=== PATIENT | female | born 1935 | race Caucasian/White ===

== ENCOUNTER → 2016-12-18 | Day surgery (SDC) | payer MEDICARE, OTHER ==
[~2016-12-18] MED LIST: Glycopyrrolate 0.2 MG/ML SDV IVPUSH ONE; Lactated Ringers 1,000 ML IV SCH; Propofol 200 MG/20 ML SDV IV ONE
[2016-12-18 11:36] VITALS: BP 132/80
--- NOTE | 2016-12-18 15:28 | OR ---
DATE OF OPERATION: 12/18/2016 PREOPERATIVE DIAGNOSIS: DYSPHAGIA. POSTOPERATIVE DIAGNOSIS: DYSPHAGIA SECONDARY TO HIATAL HERNIA WITH ESOPHAGITIS STRICTURE AND SEVERE GASTRITIS BODY OF THE STOMACH. SURGEON: Abe Ivey MD PROCEDURE: UPPER GI ENDOSCOPY WITH BIOPSY STOMACH AND BIOPSIES EG JUNCTION AND ESOPHAGEAL DILATATION WITH BALLOON DILATOR. ANESTHESIA: IV sedation by SENIOR GRANT WRITER. DESCRIPTION OF PROCEDURE: After the patient's oropharyngeal mucosa was anesthetized, the patient was made to swallow the gastroscope down. The patient's upper esophagus was normal. The GE junction shows evidence of stricture secondary to esophagitis. There was a small sliding hiatal hernia. There was severe gastritis present within the body of the stomach. Multiple biopsies from here were taken. Pylorus and the 1st and 2nd part of duodenum were examined. They were free of any ulcer disease or any tumor, mass, or any polypoid lesion. Gastroscope was retroverted and the hiatal hernia was confirmed. Fundus also showed some gastritis. Then, biopsies from EG junction were taken. Balloon dilator was paused to place at the EG junction and dilatation was carried up to 4 mmHg pressure. The patient tolerated the procedure well and left the operating room in satisfactory condition. Before terminating the procedure, multiple photographs were taken. ALIYAH/JESSICA /[id number]
== END ==
LOC: CC.SDS 07:57
PROVIDERS: ATTEND Surgery
DX: K29.50 Unspecified chronic gastritis without bleeding (principal); K20.9 Esophagitis, unspecified; K22.2 Esophageal obstruction; K44.9 Diaphragmatic hernia without obstruction or gangrene; I48.0 Paroxysmal atrial fibrillation; I50.9 Heart failure, unspecified; E11.9 Type 2 diabetes mellitus without complications; N39.0 Urinary tract infection, site not specified; Z88.6 Allergy status to analgesic agent; Z79.01 Long term (current) use of anticoagulants; Z79.899 Other long term (current) drug therapy
CPT/HCPCS: 36415; 43239; 43249; 85610; 88305; A4216; J2704; J7120; 00740

== ENCOUNTER → 2017-07-16 | Day surgery (SDC) | payer MEDICARE, OTHER ==
[~2017-07-16] MED LIST changes: +Bupivacaine 0.25% 10 ML SDV ONE; -Glycopyrrolate 0.2 MG/ML SDV IVPUSH ONE; +Lidocaine 2% 20 ML MDV ONE; -Propofol 200 MG/20 ML SDV IV ONE; +ceFAZolin 1 GM Vial IVPUSH ONE
[2017-07-16 12:36] VITALS: BP 134/75
== END ==
LOC: CC.SDS 11:50
PROVIDERS: ATTEND Surgery
DX: D17.22 Benign lipomatous neoplasm of skin and subcutaneous tissue of left arm (principal); Z53.8 Procedure and treatment not carried out for other reasons; I48.0 Paroxysmal atrial fibrillation; I50.9 Heart failure, unspecified; E11.9 Type 2 diabetes mellitus without complications; I10 Essential (primary) hypertension; E78.5 Hyperlipidemia, unspecified; E55.9 Vitamin D deficiency, unspecified; Z88.8 Allergy status to other drugs, medicaments and biological substances; Z79.01 Long term (current) use of anticoagulants; Z79.899 Other long term (current) drug therapy; Z72.0 Tobacco use
CPT/HCPCS: 36415; 85610; J0690; J7120

== ENCOUNTER → 2018-07-18 | Day surgery (SDC) | payer MEDICARE, OTHER ==
[~2018-07-18] MED LIST changes: -Bupivacaine 0.25% 10 ML SDV ONE; -Lactated Ringers 1,000 ML IV SCH; +Lidocaine 1% 20 ML MDV ONE; -Lidocaine 2% 20 ML MDV ONE; -ceFAZolin 1 GM Vial IVPUSH ONE
[2018-07-18 17:11] VITALS: BP 133/65
--- NOTE | 2018-07-19 08:37 | OR ---
DATE OF OPERATION: 07/18/2018 PREOPERATIVE DIAGNOSIS: VENOUS INSUFFICIENCY WITH PAINFUL VARICOSITIES. POSTOPERATIVE DIAGNOSIS: VENOUS INSUFFICIENCY WITH PAINFUL VARICOSITIES. SURGEON: Bigg Jacobs MD PROCEDURE: ARCHANA, RIGHT GSV. ANESTHESIA: Local tumescent. COMPLICATIONS: None. SPECIMEN: None. FINDINGS: Successful ARCHANA, right GSV. 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 She elected to proceed with endovenous ablation. DESCRIPTION OF PROCEDURE: The patient was brought to the operative room suite and the insufficient saphenous vein in the right lower extremity mapped via ultrasound and diagrammed on the overlying skin along with depth and diameter of the vein to be treated. The patient's limb was prepped and draped in sterile fashion. The patient was placed in reverse Trendelenburg position. Local anesthesia was instilled at the access site. The vein was accessed using ultrasound guidance and Seldinger technique in usual fashion. A guidewire introduced through the needle. The needle was removed. A small incision was made with an 11 blade scalpel and the guidewire was exchanged with a 6-Irish sheath held in place by skin tension. After guidewire was removed, the sheath was flushed. Radiofrequency probe was placed into the vein and advanced to the saphenofemoral junction approximately 2 cm distal to this. Once probe position was verified via ultrasound , tumescent anesthesia was infiltrated into the perivenous compartment under ultrasound guidance, achieving a halo effect around the vein without any complication from the level of the access site to the junction. The patient was then placed back in Trendelenburg position to exsanguinate the superficial system after radiofrequency probe positioned again confirmed via ultrasound and with direct external compression along the length of the heating element, radiofrequency energy was applied. The vein was segmentally ablated heating a 7 cm segment and indexing the catheter forward 6.5 cm until treatment length complete. Device temperature was maintained at 120 degrees Celsius with an initial power level of 40 sow dropping below 20 for each treatment. Total radiofrequency treatment time was 2 minutes with 6 radiofrequency cycles. 400 mL of tumescent anesthesia was used. Patient tolerated procedure well. Ultrasound confirmed successful treatment. The catheter and sheath were withdrawn without complication. The skin incision was closed with butterfly bandage and compression wrap was placed from the level of the foot to the groin. SABRINA/JESSICA /[id number]
== END ==
LOC: CC.SDS 10:57
PROVIDERS: ATTEND Family Medicine
DX: I87.2 Venous insufficiency (chronic) (peripheral) (principal); I83.811 Varicose veins of right lower extremity with pain

== ENCOUNTER → 2018-08-13 | Day surgery (SDC) | payer MEDICARE, OTHER ==
[~2018-08-13] MED LIST changes: +ALPRAZolam 0.5 MG Tab.DIS (ODT) PO ONE; +ALPRAZolam ODT 0.25 MG Tab ONE
[2018-08-13 08:46] VITALS: BP 134/76
--- NOTE | 2018-08-15 10:16 | OR ---
DATE OF OPERATION: 08/13/2018 PREOPERATIVE DIAGNOSIS: VENOUS INSUFFICIENCY WITH PAINFUL VARICOSITIES. POSTOPERATIVE DIAGNOSIS: VENOUS INSUFFICIENCY WITH PAINFUL VARICOSITIES. SURGEON: Bigg Jacobs MD PROCEDURE: ENDOVENOUS ABLATION, LEFT GREAT SAPHENOUS VEIN. ANESTHESIA: Local tumescent. COMPLICATIONS: None. SPECIMEN: None. FINDINGS: Successful ARCHANA, left GSV. INDICATIONS: The patient has documented saphenofemoral insufficiency with symptomatic and painful varicosity. She elects to proceed with endovenous ablation. DESCRIPTION OF PROCEDURE: The patient was brought to the operating room suite and the insufficient saphenous vein was mapped via ultrasound and diagrammed on the overlying skin along with the access site just below the knee. The entire limb was prepped and draped in sterile fashion. The patient was placed in reverse Trendelenburg position. Local anesthesia was instilled in the skin overlying the access site. The vein was accessed using ultrasound guidance and the Seldinger technique, with a guidewire introduced through the needle. The needle was removed. A small skin incision was made with an 11 blade scalpel. The guidewire was exchanged for a 6-[place] sheath, held in place by skin tension, and after the guidewire was removed, the sheath was flushed and the radiofrequency probe was placed into the vein through the sheath and positioned approximately 1.85 cm distal to the saphenofemoral junction under ultrasound guidance. Once probe position again verified via ultrasound, tumescent anesthesia was infiltrated using ultrasound precisely in the perivenous compartment along the length of the vein from the entry site to the saphenofemoral junction achieving a halo effect around the vein. The patient was placed back in Trendelenburg position to exsanguinate the superficial system. Radiofrequency probe position confirmed via ultrasound, and with direct external compression along the length of the heating element, radiofrequency energy was applied. The vein was segmentally ablated by heating a 7 cm segment and indexing the catheter forward by 6.5 cm until treatment length complete. Device temperature was maintained at 120 degrees Celsius with an initial power level of 40, was dropping to below 20 for each treatment. Total radiofrequency treatment time was 2 minutes and 20 seconds with 7 radiofrequency cycles. A total of 450 mL of tumescent was used. Repeat ultrasound confirmed successful treatment. The catheter and the sheath were withdrawn and hemostasis was established with direct pressure. After hemostasis, the skin incision was closed with Steri-Strips and compression wrap was placed from the level of the foot to the upper thigh. The patient was stable in the recovery room. SABRINA/JESSICA /[id number]
== END ==
LOC: CC.SDS 07:57
PROVIDERS: ATTEND Family Medicine
DX: I87.2 Venous insufficiency (chronic) (peripheral) (principal); I83.812 Varicose veins of left lower extremity with pain
CPT/HCPCS: A4216; A9270-GY